=== PATIENT | male | born 1990 | race Caucasian/White ===

== ENCOUNTER 2024-02-24 19:49 | Emergency (ER) | payer SELFPAY ==
[~2024-02-24] VITALS: Ht 190.5 cm; Wt 88.5 kg
[2024-02-24 19:54] VITALS: BP_SYST 140; PULSE 47; RESP 20; TEMP 97.1; O2SAT 98
[2024-02-24] MEDS ORDERED: LIDOCAINE 1%, 20 ML MDV 20 ML ONE (20:14)
[2024-02-24] MEDS: LIDOCAINE 1% 10 MG/ML, 20 ML MDV INJ ONE (20:20)
[2024-02-24] MEDS ORDERED: CEPH-548 PO (20:47)
[2024-02-24] MEDS: BACITRACIN 1 GM OINT TP ONE (20:51)
[2024-02-24] MEDS: DIPHTH,PERTUSS(ACELL),TET VAC 0.5 ML VIAL (Tdap) I.M. ONE (20:53)
[2024-02-24 21:03] VITALS: BP_SYST 140; PULSE 47; RESP 20; TEMP 97.1; O2SAT 98
== END 2024-02-24 21:03 | disposition home or self-care (01) ==
LOC: SED 19:49
DX: S61.412A Laceration without foreign body of left hand, initial encounter (principal); Z23 Encounter for immunization; W45.8XXA Other foreign body or object entering through skin, initial encounter; Y93.89 Activity, other specified; Y92.89 Other specified places as the place of occurrence of the external cause; Y99.8 Other external cause status
CPT/HCPCS: 90715; 99283; J2001